=== PATIENT | male | born 1975 | race Caucasian/White ===

== ENCOUNTER 2021-01-08 14:35 | Emergency (ER) | payer OTHER ==
[~2021-01-08] VITALS: Ht 195.6 cm; Wt 72.0 kg
[2021-01-08] MEDS ORDERED: normal saline 1000ML IV soln IVB ONE (15:15)
[2021-01-08 15:37] LABS: BASOPHILS % (AUTO) 0.3 % (0-1); EOSINOPHILS # (AUTO) 0.1 X10'3 (0-0.9); EOSINOPHILS % (AUTO) 0.8 % (0-6); HEMATOCRIT 40.8 % (42.0-52.0); HEMOGLOBIN 13.9 g/dl (14.0-17.9); LYMPHOCYTES % (AUTO) 12.4 % (21-51); MEAN CORPUSCULAR VOLUME 91.3 FL (78-98); MEAN PLATELET VOLUME 7.4 FL (7.4-10.4); MONOCYTES # (AUTO) 0.7 X10'3 (0-0.9); NEUTROPHILS # (AUTO) 6.2 X10'3 (1.8-7.7); NEUTROPHILS % (AUTO) 77.5 % (42-75); PLATELET COUNT 230 X10'3 (140-440); RED BLOOD COUNT 4.46 X10'6 (4.70-6.10); RED CELL DISTRIBUTION WIDTH 12.6 % (11.5-14.5); WHITE BLOOD COUNT 8.1 X10'3 (4.5-11.0)
[2021-01-08 15:38] LABS: ALANINE AMINOTRANSFERASE 20 U/L (12-78); ALBUMIN 4.1 G/DL (3.4-5.0); ALBUMIN/GLOBULIN RATIO 1.3 (1.1-1.5); ALKALINE PHOSPHATASE 69 IU/L (46-116); ANION GAP 12 (8-16); ASPARTATE AMINO TRANSFERASE 17 U/L (10-37); BILIRUBIN,TOTAL 0.6 MG/DL (0.1-1.0); BLOOD UREA NITROGEN 15 MG/DL (7-18); CALCIUM 8.5 MG/DL (8.5-10.1); CHLORIDE 102 MMOL/L (99-107); CREATININE 0.79 MG/DL (0.60-1.10); GLUCOSE 119 MG/DL (70-104); POTASSIUM 3.2 MMOL/L (3.5-5.1); SODIUM 136 MMOL/L (135-145); TOTAL CARBON DIOXIDE 22.5 MMOL/L (24-32); TOTAL PROTEIN 7.2 G/DL (6.4-8.2); eGFR > 90 ML/MIN
[2021-01-08 15:38] LABS: CLARITY,URINE CLEAR (Clear); COLOR,URINE YELLOW (Yellow); GLUCOSE, URINE NEGATIVE (Neg); KETONES,URINE 15 mg/dl (Neg); LEUKOCYTE ESTERASE ,URINE NEGATIVE (Neg); NITRITES, URINE NEGATIVE (Neg); OCCULT BLOOD,URINE NEGATIVE (Neg); PROTEIN,URINE NEGATIVE (Neg); UA COLLECTION TYPE NON-SPECIFIED; UROBILINOGEN,URINE 0.2 E.U/dL (0.2-1.0)
[2021-01-08] MEDS ORDERED: ketorolac trometh. 30mg/ml inj. IV ONE (16:55)
--- NOTE | 2021-01-08 17:13 | NUR ---
pt to ct.
[2021-01-08] MEDS ORDERED: dexamethasone sod phosphate 10mg/ml inj IV STA (18:04)
--- NOTE | 2021-01-08 18:45 | NUR ---
PT IS LYING IN POSITION ON GURNEY, FOLLOWS COMMANDS, EYES OPEN TO VOICE, ORIENTED ONLY TO PERSON, PER WITH PT, PT HAS BEEN VERY REPETITIVE, SLEEPING AND THEN WAKES UP "WHAT IS HAPPENING", PUPILS ARE UNEQUAL, LEFT PUPIL DILATED AT SIZE 6, RT PUPIL IS SIZE 2, BOTH REACTIVE TO LIGHT, DR MASSEY AWARE, RESP EVEN AND UNLABORED, SKIN P/W/D. PLAN TO TRANSFER PT TO FACILITY WITH HIGHER LEVEL OF CARE FOR NEURO CONSULT
[2021-01-08] MEDS: LORazepam 2 mg/ml vial IV ONE ×2 (19:05→19:46)
--- NOTE | 2021-01-08 19:15 | NUR ---
PT TO MRI WITH RN,
--- NOTE | 2021-01-08 19:37 | NUR ---
PT AT MRI. TOLERATING PROCEDURE WITHOUT INCIDENT.
--- NOTE | 2021-01-08 19:57 | NUR ---
PT GIVEN 1MG OF ATIVAN DUE TO MOVEMENT DURING MRI SCANNING. PT RESTING COMFORTABLE AFTER ADMINISTRATION. VSS. NO CHANGE IN NEURO
--- NOTE | 2021-01-08 20:30 | NUR ---
PT BACK FROM CT
--- NOTE | 2021-01-08 21:41 | NUR ---
PT IS RESTING QUIETLY ON GURNEY, EYES OPEN TO VOICE, PUPILS ARE NOW EQUAL AND REACTIVE TO LIGHT, SIZE 2 BILATERALLY, FOLLOWS COMMANDS, ORIENTED TO PERSON ONLY, SLEEPY, PT DID RECEIVED ATIVAN 2MG FOR MRI
--- NOTE | 2021-01-08 22:17 | NUR ---
report to Fanta DUNCAN at [place], gary MARTINEZ, still arranging transport
[2021-01-08 23:39] VITALS: BP 98/66
== END 2021-01-09 00:24 | disposition short-term general hospital (02) ==
LOC: ER 14:36
DX: R22.0 Localized swelling, mass and lump, head (principal); Z20.822 Contact with and (suspected) exposure to COVID-19; R51.9 Headache, unspecified; R41.0 Disorientation, unspecified; F17.210 Nicotine dependence, cigarettes, uncomplicated; F15.90 Other stimulant use, unspecified, uncomplicated; Z72.89 Other problems related to lifestyle
CPT/HCPCS: 36415; 70450; 70553; 80053; 81003; 82948; 83605; 85025; 85610; 87635; 96361; 96374; 96375; 99285; C9803; J1100; J1885; J2060; J7030